=== PATIENT | female | born 1995 | race Caucasian/White ===

== ENCOUNTER 2019-11-28 20:00 | Outpatient (CLI) | payer OTHER | END 2019-11-28 20:01 | disposition home or self-care (01) | LOC: PPH VACUNA 20:00 | DX: Z23 Encounter for immunization (principal) ==

== ENCOUNTER 2020-03-08 08:00 | Outpatient (CLI) | payer OTHER | END 2020-03-08 18:00 | disposition home or self-care (01) | LOC: PPH VACUNA 08:00 | DX: Z23 Encounter for immunization (principal) ==

== ENCOUNTER 2020-11-02 16:12 | Outpatient (CLI) | payer OTHER | END 2020-11-02 16:20 | disposition home or self-care (01) | LOC: RAD 16:12 | DX: M43.8X4 Other specified deforming dorsopathies, thoracic region (principal); M99.01 Segmental and somatic dysfunction of cervical region; M99.02 Segmental and somatic dysfunction of thoracic region; M99.03 Segmental and somatic dysfunction of lumbar region; M99.04 Segmental and somatic dysfunction of sacral region ==

== ENCOUNTER 2020-12-09 08:00 | Outpatient (CLI) | payer OTHER | END 2020-12-09 08:30 | disposition home or self-care (01) | LOC: PPH VACUNA 08:00 | PROVIDERS: ATTEND Emergency Medicine Pediatric Emergency Medicine | DX: Z23 Encounter for immunization (principal) ==

== ENCOUNTER 2020-12-15 10:00 | Outpatient (CLI) | payer OTHER | END 2020-12-15 10:15 | disposition home or self-care (01) | LOC: PPH VACUNA 10:00 | PROVIDERS: ATTEND Emergency Medicine Pediatric Emergency Medicine | DX: Z23 Encounter for immunization (principal) ==

== ENCOUNTER 2021-08-17 09:21 | Outpatient (CLI) | payer OTHER | END 2021-08-17 09:24 | disposition home or self-care (01) | LOC: LAB 09:21 | PROVIDERS: ATTEND Preventive Medicine Occupational Medicine | DX: U07.1 COVID-19 (principal) ==

== ENCOUNTER 2021-11-23 08:00 | Outpatient (CLI) | payer OTHER | END 2021-11-23 08:05 | disposition home or self-care (01) | LOC: PPH VACUNA 08:00 | PROVIDERS: ATTEND Emergency Medicine Pediatric Emergency Medicine | DX: Z23 Encounter for immunization (principal) ==

== ENCOUNTER 2022-11-09 | Outpatient (CLI) | payer OTHER | END 2022-11-09 00:15 | disposition home or self-care (01) | LOC: PPH VACUNA | PROVIDERS: ATTEND Emergency Medicine Pediatric Emergency Medicine | DX: Z23 Encounter for immunization (principal) | CPT/HCPCS: 90686; G0008 ==

== ENCOUNTER → 2022-11-21 07:16 | Outpatient (CLI) | payer OTHER | END | disposition home or self-care (01) | LOC: LAB 07:16 | PROVIDERS: ATTEND Specialist | DX: D64.9 Anemia, unspecified (principal); R10.9 Unspecified abdominal pain; N39.0 Urinary tract infection, site not specified; E11.9 Type 2 diabetes mellitus without complications; E03.9 Hypothyroidism, unspecified; E78.2 Mixed hyperlipidemia; E55.9 Vitamin D deficiency, unspecified ==

== ENCOUNTER 2023-12-14 11:35 | Outpatient (CLI) | payer OTHER | END 2023-12-14 12:00 | disposition home or self-care (01) | LOC: PPH VACUNA 11:35 | PROVIDERS: ATTEND Emergency Medicine Pediatric Emergency Medicine | DX: Z23 Encounter for immunization (principal) ==